=== PATIENT | male | born 2000 | race Caucasian/White ===

== ENCOUNTER 2019-11-15 00:55 | Emergency (ER) | payer SELFPAY ==
[~2019-11-15] VITALS: Ht 165 cm; Wt 85.7 kg
[~2019-11-15 00:55] MED LIST: NAPR-243 PO
[2019-11-15 01:38] LABS: BILIRUBIN,URINE NEGATIVE (NEGATIVE); CLARITY,URINE CLEAR; COLOR,URINE YELLOW; GLUCOSE, URINE (UA) NEGATIVE (NEGATIVE); KETONES,URINE NEGATIVE (NEGATIVE); LEUKOCYTE ESTERASE ,URINE NEGATIVE (NEGATIVE); NITRITE,URINE NEGATIVE (NEGATIVE); PROTEIN,URINE NEGATIVE (NEGATIVE)
[2019-11-15 01:55] LABS: BACTERIA,URINE TRACE /HPF; SQUAMOUS EPITHELIAL CELL,UR 0-2 /HPF
[2019-11-15] MEDS ORDERED: KETOROLAC 30 MG/ML VIAL IVP STA (02:00)
[2019-11-15] MEDS ORDERED: LACTATED RINGERS 1,000 ML IV ONE (02:00)
[2019-11-15 02:26] LABS: BASOPHILS % (AUTO) 0 % (0-10); EOSINOPHILS # (AUTO) 0.1 10^3/uL (0.0-0.3); EOSINOPHILS % (AUTO) 2 % (0-10); HEMATOCRIT 46 % (40-54); HEMOGLOBIN 15.9 G/DL (13.3-17.7); LYMPHOCYTES # (AUTO) 1.9 X 10^3 (1.0-4.0); LYMPHOCYTES % (AUTO) 25 % (12-44); MEAN CORPUSCULAR HEMOGLOBIN 30 PG (25-34); MEAN CORPUSCULAR HGB CONC 35 G/DL (32-36); MEAN CORPUSCULAR VOLUME 85 FL (80-99); MEAN PLATELET VOLUME 8.9 FL (7.4-10.4); MONOCYTES # (AUTO) 0.6 X 10^3 (0.0-1.0); MONOCYTES % (AUTO) 8 % (0-12); NEUTROPHILS # (AUTO) 4.7 X 10^3 (1.8-7.8); NEUTROPHILS % (AUTO) 64 % (42-75); PLATELET COUNT 290 10^3/uL (130-400); RED CELL DISTRIBUTION WIDTH 13.2 % (10.0-14.5); WHITE BLOOD COUNT 7.3 10^3/uL (4.3-11.0)
[2019-11-15 02:50] LABS: ALANINE AMINOTRANSFERASE 30 U/L (0-55); ALBUMIN 4.7 GM/DL (3.2-4.5); ALKALINE PHOSPHATASE 85 U/L (40-136); AMYLASE 79 U/L (25-125); BILIRUBIN,TOTAL 0.5 MG/DL (0.1-1.0); BUN/CREATININE RATIO 8; CALCIUM 9.4 MG/DL (8.5-10.1); CARBON DIOXIDE 22 MMOL/L (21-32); CHLORIDE 105 MMOL/L (98-107); CREATININE SERUM 0.88 MG/DL (0.60-1.30); GFR ESTIMATED > 60; GLUCOSE 90 MG/DL (70-105); LIPASE 33 U/L (8-78); POTASSIUM 3.5 MMOL/L (3.6-5.0); SODIUM 140 MMOL/L (135-145); TOTAL PROTEIN 7.8 GM/DL (6.4-8.2)
[2019-11-15] MEDS ORDERED: RX-ONDANSETRON 4 MG ODT (ZOFRAN) PPK #4 PO STA (03:20)
[2019-11-15] MEDS ORDERED: TMSL.4C PO (03:25)
[2019-11-15] MEDS ORDERED: ONDA4TAB11 PO (03:25)
[2019-11-15] MEDS ORDERED: SULF1TAB35 PO (03:25)
[2019-11-15] MEDS ORDERED: HYDR-87 PO (03:25)
--- NOTE | 2019-11-15 03:25 | ED Back Pain ---
General Chief Complaint: Back Problems Stated Complaint: LEFT SIDE BACK PAIN Nursing Triage Note: left lower back pain, no injury Nursing Sepsis Screen: No Definite Risk Source of Information: Patient Allergies and Home Medications Allergies Coded Allergies: Azithromycin (Unverified Allergy, Mild, VOMITTING, 06/27/10) Home Medications No Active Prescriptions or Reported Meds Past Ydqefro-Svoivt-Ohfluu Hx Patient Social History Alcohol Use: Denies Use Recreational Drug Use: No Smoking Status: Never a Smoker 2nd Hand Smoke Exposure: No Recent Foreign Travel: No Contact w/Someone Who Travel: No Recent Infectious Disease Expo: No Recent Hopitalizations: No Physical Abuse: No Sexual Abuse: No Mistreated: No Fear: No Immunizations Up To Date Tetanus Booster (TDap): Unknown PED Vaccines UTD: Yes Seasonal Allergies Seasonal Allergies: Yes Past Medical History Surgeries: No Respiratory: No Cardiac: No Neurological: No Genitourinary: No Gastrointestinal: No Musculoskeletal: No Endocrine: No HEENT: No Cancer: No Psychosocial: No Integumentary: No Blood Disorders: No Family Medical History No Pertinent Family Hx Physical Exam Vital Signs Vital Signs - First Documented 11/15/19 01:20 Temp 36.8 Pulse 81 Resp 16 B/P (MAP) 122/79 (93) Pulse Ox 99 O2 Delivery Room Air Capillary Refill : Less Than 3 Seconds Height, Weight, BMI Height: 5'6" Weight: 165lbs. oz. [id number]; 31.00 BMI Method: Progress/Results/Core Measures Results/Orders Lab Results Laboratory Tests Test 11/15/19 01:30 11/15/19 02:10 Range/Units Urine Color YELLOW Urine Clarity CLEAR Urine pH 5.0 5-9 Urine Specific [place] >=1.030 1.016-1.022 Urine Protein NEGATIVE NEGATIVE Urine Glucose (UA) NEGATIVE NEGATIVE Urine Ketones NEGATIVE NEGATIVE Urine Nitrite NEGATIVE NEGATIVE Urine Bilirubin NEGATIVE NEGATIVE Urine Urobilinogen 0.2 < = 1.0 MG/DL Urine Leukocyte Esterase NEGATIVE NEGATIVE Urine RBC (Auto) 3+ H NEGATIVE Urine RBC 5-10 H /HPF Urine WBC NONE /HPF Urine Squamous Epithelial Cells 0-2 /HPF Urine Crystals NONE /LPF Urine Bacteria TRACE /HPF Urine Casts NONE /LPF Urine Mucus SMALL H /LPF Urine Culture Indicated NO White Blood Count 7.3 4.3-11.0 10^3/uL Red Blood Count 5.39 4.35-5.85 10^6/uL Hemoglobin 15.9 13.3-17.7 G/DL Hematocrit 46 40-54 % Mean Corpuscular Volume 85 80-99 FL Mean Corpuscular Hemoglobin 30 25-34 PG Mean Corpuscular Hemoglobin Concent 35 32-36 G/DL Red Cell Distribution Width 13.2 10.0-14.5 % Platelet Count 290 130-400 10^3/uL Mean Platelet Volume 8.9 7.4-10.4 FL Neutrophils (%) (Auto) 64 42-75 % Lymphocytes (%) (Auto) 25 12-44 % Monocytes (%) (Auto) 8 0-12 % Eosinophils (%) (Auto) 2 0-10 % Basophils (%) (Auto) 0 0-10 % Neutrophils # (Auto) 4.7 1.8-7.8 X 10^3 Lymphocytes # (Auto) 1.9 1.0-4.0 X 10^3 Monocytes # (Auto) 0.6 0.0-1.0 X 10^3 Eosinophils # (Auto) 0.1 0.0-0.3 10^3/uL Basophils # (Auto) 0.0 0.0-0.1 10^3/uL Sodium Level 140 135-145 MMOL/L Potassium Level 3.5 L 3.6-5.0 MMOL/L Chloride Level 105 98-107 MMOL/L Carbon Dioxide Level 22 21-32 MMOL/L Anion Gap 13 5-14 MMOL/L Blood Urea Nitrogen 7 7-18 MG/DL Creatinine 0.88 0.60-1.30 MG/DL Estimat Glomerular Filtration Rate > 60 BUN/Creatinine Ratio 8 Glucose Level 90 70-105 MG/DL Calcium Level 9.4 8.5-10.1 MG/DL Corrected Calcium 8.5-10.1 MG/DL Total Bilirubin 0.5 0.1-1.0 MG/DL Aspartate Amino Transf (AST/SGOT) 22 5-34 U/L Alanine Aminotransferase (ALT/SGPT) 30 0-55 U/L Alkaline Phosphatase 85 40-136 U/L Total Protein 7.8 6.4-8.2 GM/DL Albumin 4.7 H 3.2-4.5 GM/DL Amylase Level 79 25-125 U/L Lipase 33 8-78 U/L My Orders Orders - BRIDGET MCLAUGHLIN DO Ua Culture If Indicated (11/15/19 01:26) Ed Iv/Invasive Line Start (11/15/19 02:00) Ct Abd/Pelvis Wo(Kidney Stone) (11/15/19 02:00) Amylase (11/15/19 02:00) Cbc With Automated Diff (11/15/19 02:00) Comprehensive Metabolic Panel (11/15/19 02:00) Lipase (11/15/19 02:00) Ed Iv/Invasive Line Start (11/15/19 02:00) Lactated Ringers (Lr 1000 Ml Iv Solution (11/15/19 02:00) Ketorolac Injection (Toradol Injection) (11/15/19 02:00) Abdomen/Kub 1view (11/15/19 02:00) Tamsulosin Capsule (Flomax Capsule) (11/15/19 03:30) Rx-Hydrocodone/Apap 5-325 Mg (Rx-Vicodin (11/15/19 03:30) Rx-Ondansetron Po (Rx-Zofran Po) (11/15/19 03:20) Medications Given in ED Current Medications Medications Dose Ordered Sig/Jay Jay Route Start Time Stop Time Status Last Admin Dose Admin Lactated Ringer's 1,000 ml @ 0 mls/hr Q0M ONCE IV 11/15/19 02:00 11/15/19 02:02 DC 11/15/19 02:13 0 MLS/HR Vital Signs/I&O 11/15/19 01:20 Temp 36.8 Pulse 81 Resp 16 B/P (MAP) 122/79 (93) Pulse Ox 99 O2 Delivery Room Air Blood Pressure Mean: 93 Departure Impression Primary Impression: Left ureteral injury Additional Impression: ENLARGE PROSTATE NOTED ON CT SCAN Disposition: HOME, SELF-CARE Condition: Improved Departure-Patient Inst. Referrals: NO,LOCAL PHYSICIAN (PCP) Primary Care Physician SHERLY KENNY MD Patient Instructions: Benign Prostatic Hyperplasia (Enlarged Prostate) (DC), Kidney Stones (DC) Add. Discharge Instructions: STRAIN ALL URINE--RETURN ANY STONES TO DR. KENNY'S OFFICE LOTS OF CLEAR LIQUIDS--DRINK ENOUGH SO YOU ARE URINATING EVERY 2-3 HOURS WHILE AWAKE FOLLOW UP WITH DR. KENNY NEXT WEEK FOR FURTHER CARE, RETURN TO ER IF WORSE All discharge instructions reviewed with patient and/or family. Voiced understanding. Scripts Ondansetron (Ondansetron Odt) 4 Mg Tab.rapdis 4 MG PO Q4H for Nausea/Vomiting, #10 TAB Prov: BRIDGET MCLAUGHLIN DO 11/15/19 Tamsulosin HCl (Flomax) 0.4 Mg Cap 0.4 MG PO DAILY, #10 CAP Prov: BRIDGET MCLAUGHLIN DO 11/15/19 Hydrocodone/Ibuprofen (Hydrocodone-Ibuprofen 7.5-200) 1 Each Tablet 1 EACH PO Q4H PRN for PAIN-MODERATE for 3 Days, #15 TAB Prov: BRIDGET MCLAUGHLIN DO 11/15/19 Sulfamethoxazole/Trimethoprim (Bactrim Ds Tablet) 1 Each Tablet 1 EACH PO BID, #20 TAB Prov: BRIDGET MCLAUGHLIN DO 11/15/19 BRIDGET MCLAUGHLIN DO Nov 15, 2019 03:25
[2019-11-15 03:28] VITALS: BP 115/80
[2019-11-15] MEDS ORDERED: TAMSULOSIN 0.4 MG (FLOMAX) CAP PO SCH (03:30)
[2019-11-15] MEDS ORDERED: RX-HYDROCODONE/APAP 5/325 MG #4 TAB PK PO PRN (03:30)
--- NOTE | 2019-11-15 06:07 | Diagnostic Imaging Report ---
EXAMINATION: CT Abdomen Pelvis without contrast. TECHNIQUE: Multiple contiguous axial images were obtained through the abdomen and pelvis without the use of intravenous contrast. All CT scans use one or more of the following dose optimizing techniques: automated exposure control, MA and/or KvP adjustment based on a patient size and exam type, or iterative reconstruction. INDICATION: Left flank pain. COMPARISON: None available. FINDINGS: Limited views of the lower thorax are unremarkable. The liver is normal without focal lesion. There is no biliary ductal dilation. Gallbladder is normal. Pancreas is normal. Spleen is normal. Adrenal glands are normal. There is a 2 mm mid left ureteral stone with mild left-sided hydroureter. No significant hydronephrosis. Urinary bladder is normal. There are no dilated loops of large or small bowel. No obstruction or inflammation. No free fluid or air. No abdominal or pelvic lymphadenopathy. Aorta is normal in caliber without aneurysm. There are no suspicious osseus lesions. IMPRESSION: 1. Mid left ureteral stone measuring 2 mm with mild left-sided hydroureter. There is no significant disagreement with the preliminary report. Dictated by: Dictated on workstation # [id number]
--- NOTE | 2019-11-15 06:59 | Diagnostic Imaging Report ---
INDICATION: Left flank pain and hematuria. TIME OF EXAM: 2:51 AM The bowel gas pattern is unremarkable. No definite radiopaque urinary tract calculi are identified. There is no free air. IMPRESSION: No acute abnormality is detected. Dictated by: Dictated on workstation # [id number]
== END 2019-11-15 03:32 | disposition home or self-care (01) ==
LOC: EDUNIT# 00:55 → ER 00:58
DX: S37.10XA Unspecified injury of ureter, initial encounter (principal); N40.0 Benign prostatic hyperplasia without lower urinary tract symptoms; Z88.1 Allergy status to other antibiotic agents; X58.XXXA Exposure to other specified factors, initial encounter
CPT/HCPCS: 36415; 74018; 74176; 80053; 81000; 82150; 83690; 85025